=== PATIENT | female | born 1965 | race Caucasian/White ===

== ENCOUNTER 2018-04-24 10:29 | Day surgery (SDC) | payer OTHER ==
[~2018-04-24 10:29] MED LIST: NERLYNX40 MG PO; SYNTHROID50 MCG PO; [UNRECOGNIZED DRUG - OTHER] PO; [UNRECOGNIZED DRUG - OTHER] PO
== END 2018-04-24 14:42 | disposition home or self-care (01) ==
LOC: CIR.AMB 10:29
DX: C50.912 Malignant neoplasm of unspecified site of left female breast (principal); Z90.12 Acquired absence of left breast and nipple; N65.1 Disproportion of reconstructed breast

== ENCOUNTER 2023-04-22 05:12 | Day surgery (SDC) | payer OTHER | END 2023-04-22 15:00 | disposition home or self-care (01) | LOC: CIR.AMB 05:12 | PROVIDERS: ATTEND Plastic Surgery | DX: D48.19 Other specified neoplasm of uncertain behavior of connective and other soft tissue (principal); R59.0 Localized enlarged lymph nodes; N65.1 Disproportion of reconstructed breast; Z90.12 Acquired absence of left breast and nipple; T85.44XD Capsular contracture of breast implant, subsequent encounter; C50.412 Malignant neoplasm of upper-outer quadrant of left female breast; I10 Essential (primary) hypertension ==